=== PATIENT | female | born 1985 | race Caucasian/White ===

== ENCOUNTER 2017-04-17 03:54 | Inpatient (IN) | payer OTHER ==
[2017-04-17] MEDS ORDERED: LIDOCAINE 1% 2 ML INJ ONE (08:23)
[2017-04-17] MEDS ORDERED: OXYTOCIN/RINGERS LACTATE 1,000 ML IV PRN (08:49)
[2017-04-17] MEDS ORDERED: TERBUTALINE SULFATE 1 MG/ML VIAL IV PRN (08:49)
[2017-04-17] MEDS ORDERED: LR 1,000 ML IV PRN (08:49)
[2017-04-17] MEDS ORDERED: OLIVE OIL 118 ML BTL MISC PRN (08:49)
[2017-04-17] MEDS ORDERED: EPSOM SALT 454 GM TP PRN (08:49)
[2017-04-17 09:15] LABS: % IMMATURE GRANULYOCYTES 0.3 % (0.0-1.1); ABSOLUTE IMMATURE GRANULOCYTES 0.03 10^3/uL (0.00-0.10); ADD DIFF? NO; ADD MORPH? NO; ADD SCAN? NO; ATYPICAL LYMPHOCYTE FLAG 0 (0-99); FRAGMENT RBC FLAG 0 (0-99); HEMATOCRIT 36.7 % (38.0-47.0); HEMOGLOBIN 12.1 g/dL (12.6-16.3); LEFT SHIFT FLG 0 (0-99); LIPEMIA HEMOLYSIS FLAG 80 (0-99); MEAN CELL HEMOGLOBIN 30.1 pg (27.9-34.1); MEAN CELL VOLUME 91.3 fL (81.5-99.8); MEAN PLATELET VOLUME 9.4 fL (8.7-11.7); PLATELET CLUMPS FLAG 0 (0-99); PLATELET COUNT 172 10^3/uL (150-400); RED BLOOD CELL COUNT 4.02 10^6/uL (4.18-5.33)
[2017-04-17] MEDS ORDERED: fentaNYL 2MCG/ML/BUP 0.1% RTU 100 ML BAG EP ONE (11:01)
[2017-04-17] MEDS ORDERED: PHENYLEPHRINE HCL 100 MCG/ML SYR ONE (11:02)
[2017-04-17] MEDS ORDERED: BUPIVACAINE 0.25% 30 ML SDV ONE (11:02)
[2017-04-17] MEDS ORDERED: fentaNYL 100 MCG/2 ML INJ ONE (11:02)
[2017-04-17] MEDS ORDERED: TERBUTALINE SULFATE 1 MG/ML VIAL ONE (12:05)
[2017-04-17] MEDS ORDERED: AMMONIA AROMATIC 1 EACH AMP IH ONE (12:05)
[2017-04-17] MEDS ORDERED: LIDOCAINE 1% 300 MG/30 ML SDV ONE (12:05)
[2017-04-17] MEDS ORDERED: OXYTOCIN 10 UNIT/ML VIAL ONE (12:05)
[2017-04-17] MEDS ORDERED: MISOPROSTOL 200 MCG TAB ONE (12:05)
[2017-04-17] MEDS ORDERED: OLIVE OIL 118 ML BTL ONE (12:05)
[2017-04-17] MEDS ORDERED: OXYTOCIN 20 UNIT in LR 1,000 ML IV PRN (12:09)
--- NOTE | 2017-04-17 12:10 | PREANESOB ---
Obstetric Pre-Anesthesia Info - General Info Proposed Procedure: Labor and delivery. : 4 Para: 2 WBD: 40 - Info Status: Full Term Monitors: External FHR Baseline (bpm): 130 FHR Pattern: Reassuring - Labor Status Cervical Dilation per last OB SVE: 6 Rupture of Membranes Time: 07:30 Indications for Labor Analgesia: Pain Control Labor Epidural: Proposed Anesthesia ROS: Labor epidural x 2 in the past. Allergies/Adverse Reactions: Allergy/AdvReac Type Severity Reaction Status Date / Time No Known Allergies Allergy Unverified 04/17/17 06:58 Visit Medications: Generic Name Dose Route Start Last Admin Trade Name Freq PRN Reason Stop Dose Admin Lactated Ringer's 1,000 mls @ 0 mls/hr 04/17/17 08:49 Lr IV 10/14/17 08:48 PRN PRN SEE PROTOCOL CONDITIONS Protocol Per Protocol Oxytocin/Lactated Ringer's 1,000 mls @ 150 mls/hr 04/17/17 08:49 Pitocin 20 Units/Lr (Premix) IV PRN PRN Post- bleeding Ibuprofen 600 mg 04/17/17 08:49 Motrin PO 10/14/17 08:48 Q6HRS PRN post , inflammation Magnesium Sulfate 454 gm 04/17/17 08:49 Epsom Salt TP 10/14/17 08:48 Q1H PRN perineal discomfort Fontana Oil 118 ml 04/17/17 08:49 Sweet Oil MISC 10/14/17 08:48 ONCE PRN perineal massage Terbutaline Sulfate 0.25 mg 04/17/17 08:49 Brethine IV 10/14/17 08:48 ONCE PRN Tachysystole Discontinued Medications Generic Name Dose Route Start Last Admin Trade Name Freq PRN Reason Stop Dose Admin Ammonia (Aromatic Spirit) Confirm 04/17/17 12:05 Ammonia Aromatic Administered 04/17/17 12:06 Dose 1 each IH .STK-MED ONE Bupivacaine HCl Confirm 04/17/17 11:02 Sensorcaine 0.25% Sdv Administered 04/17/17 11:03 Dose 30 ml .ROUTE .STK-MED ONE Fentanyl Confirm 04/17/17 11:02 Sublimaze Administered 04/17/17 11:03 Dose 100 mcg .ROUTE .STK-MED ONE Fentanyl/Bupivacaine HCl Confirm 04/17/17 11:01 Fentanyl/Bupivacaine/Ns 2 Mcg/Ml 0.1% (Premix Administered 04/17/17 11:02 Dose 100 ml EP .STK-MED ONE Lidocaine HCl Confirm 04/17/17 08:23 Lidocaine Hcl 1% Administered 04/17/17 08:24 Dose 2 ml .ROUTE .STK-MED ONE Lidocaine HCl Confirm 04/17/17 12:05 Lidocaine Hcl 1% Administered 04/17/17 12:06 Dose 300 mg .ROUTE .STK-MED ONE Misoprostol Confirm 04/17/17 12:05 Cytotec Administered 04/17/17 12:06 Dose 800 mcg .ROUTE .STK-MED ONE Fontana Oil Confirm 04/17/17 12:05 Sweet Oil Administered 04/17/17 12:06 Dose 118 ml .ROUTE .STK-MED ONE Oxytocin Confirm 04/17/17 12:05 Pitocin Administered 04/17/17 12:06 Dose 40 unit .ROUTE .STK-MED ONE Phenylephrine HCl Confirm 04/17/17 11:02 Neosynephrine Administered 04/17/17 11:03 Dose 1,000 mcg .ROUTE .STK-MED ONE Terbutaline Sulfate Confirm 04/17/17 12:05 Brethine Administered 04/17/17 12:06 Dose 1 mg .ROUTE .STK-MED ONE - Anesthesia History Response to Local Anesthetics: Normal Anesthesia & Operative History: No Prior Problems Family Anesthesia History: Not Applicable - Social History Substance Use/Abuse: Denies - Focused Exam Blood Pressure: 121/78 Heart Rate: 84 Respiratory Rate: 16 Height/Weight (Nursing): Height 162.56 cm Weight 71.668 kg Physical Exam: Within normal limits. ASA Status: II Labs: 04/17/17 08:45 Patient ABO/Rh O POSITIVE 04/17/17 08:45 - Plan Anesthetic Plan: CSE Consent Signed and on Chart: Yes Patient/Guardian Understands and Agrees to Plan: Yes Urgent/Emergent Case: Ray selby completed preop but documented later for safe timely pt care
[2017-04-17] MEDS ORDERED: PHENYLEPHRINE HCL 100 MCG/ML SYR IVP PRN (12:11)
[2017-04-17] MEDS ORDERED: ONDANSETRON 4 MG/2 ML VIAL IVP PRN (12:11)
--- NOTE | 2017-04-17 12:11 | POSTANESTH ---
Post Anesthetic Evaluation Cardiovascular Status: Normal, Stable, Similar to Pre-Op Cond Respiratory Status: Normal, Stable, Similar to Pre-op Cond. Level of Consciousness/Mental Status: Can Participate in Eval, Alert and Oriented Pain Control: Adequate, Prn Tx Ordered Nausea/Vomiting Control: Adequate, Prn Tx Ordered Complications Possibly Related to Anesthesia: None Noted
[2017-04-17] MEDS ORDERED: LR 500 ML IV SCH (12:30)
[2017-04-17] MEDS ORDERED: fentaNYL 2MCG/ML/BUP 0.1% RTU 100 ML EP SCH (12:30)
--- NOTE | 2017-04-17 14:43 | OBDEL ---
Info Type: Vaginal Presentation at Delivery: Vertex L&D Analgesia/Anesthesia Type: Epidural GBS+: No Intrapartum Medications: Discontinued Medications Generic Name Dose Route Start Last Admin Trade Name Rakel PRN Reason Stop Dose Admin Oxytocin 20 unit/ Lactated 1,002 mls @ 150 mls/hr 04/17/17 12:09 04/17/17 14: 15 Ringer's IV 1,002 mls PRN PRN Administration POST BLEEDING - Hospital Course Intrapartum: 04/17/17 14:41 presented in latent labor with no cervical change. Due to 40wks pt desired augmentation. AROM done @ 0730- moderate/thick MSF noted, which stimulated contractions. labor progressed, pt received CSE and was found to be complete. pushed <10minutes, viable baby boy delivered without difficulty. Indications for Delivery: Elective Vaginal Delivery - Delivery Provider Delivery Physician/CNM: Ambar Harvey - Labor and Delivery Onset of Contractions Date: 04/17/17 Onset of Contractions Time: 10:00 Onset of Contractions Type: Augmented Rupture of Membranes Date: 04/17/17 Rupture of Membranes Time: 07:30 Rupture of Membranes Type: Artificial Amniotic Fluid Color: Thick Meconium Dilation Complete Date: 04/17/17 Dilation Complete Time: 13:45 Placenta Delivery Date: 04/17/17 Placenta Delivery Time: 14:11 Total Hours of Labor: 4 Non-surgical Procedures: Amniotomy, Episiotomy Episiotomy: Midline Laceration: 1st Degree Repair: 3-0 Vaginal Sponge Count Correct: Yes Vaginal Needle Count Correct: Yes Vaginal Sweep Performed: Yes EBL: 200 Delivery Events: None [place] Data [place] Delivery Date: 04/17/17 Delivery Time: 13:57 DAVID: 04/17/17 Gestational Age: 40 week(s) and 0 day(s) Sex of Infant: Male Score (1 Min): 8 Score (5 Min): 9 ICD10 Worksheet Patient Problems: Problems Problem Status Onset (normal spontaneous vaginal delivery) Acute Thick meconium stained amniotic fluid Acute - ICD10 Problem Qualifiers (1) Thick meconium stained amniotic fluid (2) (normal spontaneous vaginal delivery)
--- NOTE | 2017-04-17 14:49 | PDGENHP ---
History and Physical - Chief Complaint contractions - History of Present Illness This is a 32yo with IUP@ 40-0wks by LMP that presents to L&D with complaints of contractions since 1800 04/16/17. She was unable to sleep through the contractions. She reports pain 6/10 with contractions. She denies any need for pain medication at this time. She denies any LOF, VB. She reports +FM. She denies any CHRISTOPHER's, visual changes, epigastric pain. History Information - Allergies/Home Medication List Allergies/Adverse Reactions: No Known Allergies Allergy (Unverified 04/17/17 06:58) Home Medications: Dha 1 tab PO DAILY 04/17/17 [Last Taken Unknown] I have personally reviewed and updated: family history (family h/o breast and ovarian cancer), medical history, social history, surgical history Past Medical History: IBS. acid reflux - Surgical History Additional surgical history: oral surgery (wisdom teeth) - Family History Positive for: cancer - Social History Smoking Status: Never smoked Review of Systems Review of Systems: ROS: 10pt was reviewed & negative except for what was stated in HPI & below Constitutional: Reports: no symptoms EENMT: Reports: no symptoms Cardiac: Reports: no symptoms Respiratory: Reports: no symptoms Gastrointestinal: Reports: no symptoms Genitourinary: Reports: no symptoms Muscolosketal: Reports: no symptoms Skin: Reports: no symptoms Neurological: Reports: no symptoms Hematologic/Lymphatic: Reports: no symptoms Immunologic/Allergy: Reports: no symptoms Physical Exam Physical Exam: Temp Pulse Resp BP Pulse Ox 84 16 121/78 H 04/17/17 12:10 04/17/17 12:10 04/17/17 12:10 Constitutional: no apparent distress, appears nourished Eyes: PERRL Ears, Nose, Mouth, Throat: moist mucous membranes, hearing normal, ears appear normal Cardiovascular: regular rate and rhythym, no murmur, rub, or gallop Respiratory: no respiratory distress, no rales or rhonchi Gastrointestinal: soft, non-tender abdomen, no palpable masses Genitourinary: no bladder fullness Skin: warm, normal color Musculoskeletal: full muscle strength, no muscle tenderness Neurologic: AAOx3 Psychiatric: interacting appropriately, not anxious Lab Data & Imaging Review 04/17/17 08:45 WBC 9.51 10^3/uL (3.80-9.50) H 04/17/17 08:45 RBC 4.02 10^6/uL (4.18-5.33) L 04/17/17 08:45 Hgb 12.1 g/dL (12.6-16.3) L 04/17/17 08:45 Hct 36.7 % (38.0-47.0) L 04/17/17 08:45 MCV 91.3 fL (81.5-99.8) 04/17/17 08:45 MCH 30.1 pg (27.9-34.1) 04/17/17 08:45 MCHC 33.0 g/dL (32.4-36.7) 04/17/17 08:45 RDW 13.0 % (11.5-15.2) 04/17/17 08:45 Plt Count 172 10^3/uL (150-400) 04/17/17 08:45 MPV 9.4 fL (8.7-11.7) 04/17/17 08:45 Neut % (Auto) 77.6 % (39.3-74.2) H 04/17/17 08:45 Lymph % (Auto) 15.7 % (15.0-45.0) 04/17/17 08:45 [place] % (Auto) 5.4 % (4.5-13.0) 04/17/17 08:45 Eos % (Auto) 0.7 % (0.6-7.6) 04/17/17 08:45 Baso % (Auto) 0.3 % (0.3-1.7) 04/17/17 08:45 Nucleat RBC Rel Count 0.0 % (0.0-0.2) 04/17/17 08:45 Absolute Neuts (auto) 7.38 10^3/uL (1.70-6.50) H 04/17/17 08:45 Absolute Lymphs (auto) 1.49 10^3/uL (1.00-3.00) 04/17/17 08:45 Absolute Monos (auto) 0.51 10^3/uL (0.30-0.80) 04/17/17 08:45 Absolute Eos (auto) 0.07 10^3/uL (0.03-0.40) 04/17/17 08:45 Absolute Basos (auto) 0.03 10^3/uL (0.02-0.10) 04/17/17 08:45 Absolute Nucleated RBC 0.00 10^3/uL (0-0.01) 04/17/17 08:45 Immature Gran % 0.3 % (0.0-1.1) 04/17/17 08:45 Immature Gran # 0.03 10^3/uL (0.00-0.10) 04/17/17 08:45 Patient ABO/Rh O POSITIVE 04/17/17 08:45 Antibody Screen NEGATIVE 04/17/17 08:45 Assessment & Plan Assessment: 32yo with IUP@ 40wks early labor GBS Neg cat 1 FHR tracing Plan: Admit to L&D AROM/pitocin PRN anticipate
[2017-04-17] MEDS: IBUPROFEN 600 MG TAB PO PRN ×2 (16:03→22:05)
[2017-04-17] MEDS ORDERED: SIMETHICONE 80 MG TAB CHEW PO PRN (16:54)
[2017-04-17] MEDS ORDERED: HYDROCORTISONE 0.5% CREAM TP PRN (16:54)
[2017-04-17] MEDS ORDERED: ACETAMINOPHEN 325 MG TAB PO PRN (16:54)
[2017-04-17] MEDS ORDERED: HYDROCODONE/APAP 5/325 TAB PO PRN (16:54)
[2017-04-17] MEDS ORDERED: DOCUSATE SODIUM 100 MG CAP PO PRN (16:54)
[2017-04-17 18:17] VITALS: RESP 16; O2SAT 94
[2017-04-18] MEDS: IBUPROFEN 600 MG TAB PO PRN ×2 (04:06→10:03)
[2017-04-18] MEDS ORDERED: PRENATAL DHA PO SCH (09:00)
[2017-04-18 10:13] VITALS: BP 113/75; PULSE 85; TEMP 97.2
--- NOTE | 2017-04-18 17:13 | OBGCSDC ---
General Delivery Information - General Info : 3 Para: 3 Abortions: 1 Type: Vaginal L&D Analgesia/Anesthesia Type: Epidural Admission Date: 04/17/17 Labs: Patient ABO/Rh O POSITIVE 04/17/17 08:45 Hct 36.7 % (38.0-47.0) L 04/17/17 08:45 - Hospital Course Intrapartum: 04/17/17 14:41 presented in latent labor with no cervical change. Due to 40wks pt desired augmentation. AROM done @ 0730- moderate/thick MSF noted, which stimulated contractions. labor progressed, pt received CSE and was found to be complete. pushed <10minutes, viable baby boy delivered without difficulty. : 04/18/17 17:09 Patient is doing well this AM. She is ambulating without difficulty and denies generalized faintness/weakness. She reports minimal lochia. She is . She desires discharge home today. Vitals signs stable HENT: atraumatic, normocephalic Lungs: CTAB Heart: RRR Abdomen: nontender, fundus firm and below umbilicus Extremities: no excessive swelling or tenderness A/P: DC home today. RTC in 4 weeks for PP depression screening and 6 weeks for routine PP visit to discuss PP contraception and other PP issues. Vaginal - Delivery Provider Delivery Physician/CNM: Ambar Harvey - Diagnosis Labor: Augmented Rupture of Membranes Type: Artificial Amniotic Fluid Color: Thick Meconium Episiotomy: Midline Laceration: 1st Degree Repair: 3-0 Delivery Events: None - Procedures Non-surgical Procedures: Amniotomy, Episiotomy - Delivery Non-surgical Procedures: Amniotomy, Episiotomy EBL: 200 [place] Data [place] Delivery Date: 04/17/17 Delivery Time: 13:57 DAVID: 04/17/17 Gestational Age: 40 week(s) and 1 day(s) Sex of : Male [place] Weight (gm): 3574 g Score (1 Min): 8 Score (5 Min): 9 Discharge Information - Discharge Information Condition: Good Instruction/Follow Up: Four Weeks, Six Weeks
== END 2017-04-18 15:00 | disposition home or self-care (01) | DRG 775 ==
LOC: FLD 03:54 → OBSVTOIN 03:54 → FOB 17:27
PROVIDERS: ADMIT Obstetrics & Gynecology Gynecology; ATTEND Obstetrics & Gynecology Gynecology
PROC: 0W8NXZZ Division of Female Perineum, External Approach (ICD-10-PCS; principal; 2017-04-17)
PROC: 10E0XZZ Delivery of Products of Conception, External Approach (ICD-10-PCS; principal; 2017-04-17)
PROC: 0HQ9XZZ Repair Perineum Skin, External Approach (ICD-10-PCS; principal; 2017-04-17)
DX: O62.0 Primary inadequate contractions (principal); O77.0 Labor and delivery complicated by meconium in amniotic fluid; O70.0 First degree perineal laceration during delivery; Z3A.40 40 weeks gestation of pregnancy; Z37.0 Single live birth; Z80.3 Family history of malignant neoplasm of breast; Z80.41 Family history of malignant neoplasm of ovary
CPT/HCPCS: G0463; J2370; J3010; J3105

== ENCOUNTER → 2017-09-25 | Outpatient (CLI) | payer OTHER | LOC: BMCIMAGING 08:46 | PROVIDERS: ATTEND Family Medicine | DX: D18.03 Hemangioma of intra-abdominal structures (principal) ==

== ENCOUNTER → 2017-12-18 | Outpatient (CLI) | payer OTHER | LOC: FIMAGING 12:16 | PROVIDERS: ATTEND Obstetrics & Gynecology | DX: Z12.31 Encounter for screening mammogram for malignant neoplasm of breast (principal); R92.2 Inconclusive mammogram; Z80.3 Family history of malignant neoplasm of breast ==